=== PATIENT | male | born 1955 | race Caucasian/White ===

== ENCOUNTER 2021-01-21 09:16 | Emergency (ER) | payer MEDICARE, SELFPAY ==
[2021-01-21 09:17] VITALS: BP 191/96; PULSE 65; RESP 20; TEMP 36.7; O2SAT 97; BMI 25.8
--- NOTE | 2021-01-21 09:27 | DI.RAD.S_ITS ---
PROCEDURE: XR SACRUM COCCYX MIN 2V INDICATIONS: pain TECHNIQUE: 3 views of the sacrum and coccyx acquired. COMPARISON: None. FINDINGS: Bones: No fractures or dislocations. No suspicious bony lesions. Soft tissues: Visualized bowel gas pattern is normal. No suspicious soft tissue densities. IMPRESSION: Normal for age, source of current pain symptoms is not seen. Dictated by: Jordin Horn M.D. on 01/21/2021 at 9:46 Approved by: Jordin Horn M.D. on 01/21/2021 at 9:46
--- NOTE | 2021-01-21 09:29 | ED.BACK ---
HPI - Back Pain/Injury General Chief Complaint: Back Pain/Injury Stated Complaint: tail bone acts like its broken or something Time Seen by Provider: 01/21/21 09:18 History of Present Illness HPI Narrative: patient is a 65-year-old male who presents with 1 weeks worth of tailbone pain. he said he was on a sailboat for 3 days sitting he does not remember any type of injury or fall. As soon as he got home he started having pain. It hurts whenever he sits. He denies numbness tingling change in bowel or bladder habits. No fever chills. Does not notice any swelling. He has been taking Advil for pain which helps some he last took it yesterday. Related Data Previous Rx's Medication Instructions Recorded hydrocodone 5 mg-acetaminophen 325 1 tab PO Q6H PRN #10 tab 01/21/21 mg tablet Allergies Allergy/AdvReac Type Severity Reaction Status Date / Time No Known Drug Allergies Allergy Verified 01/21/21 09:31 Review of Systems Review of Systems Narrative: GENERAL: Denies chills, fatigue, malaise, fever, sweats, travel HEENT: Denies sinus pain, ear pain, sore throat, difficulty swallowing, neck pain RESPIRATORY: Denies dyspnea, cough, wheezing, hemoptysis, sputum. CARDIOVASCULAR: Denies chest pain, palpitations, orthopnea, edema GASTROINTESTINAL: Denies nausea, vomiting, abdominal pain, diarrhea, constipation, melena. : Denies dysuria, frequency, incontinence, hematuria, urinary retention, flank pain. MUSCULOSKELETAL: See HPI SKIN: No rash, no erythema, no pruritus NEUROLOGIC: Denies weakness, dizziness, headache, numbness, change in speech, confusion PSYCHIATRIC: No concerning psychosocial issues. 12 point review of systems is negative except for those stated above and HPI Patient History Social History Smoking Status: Current every day smoker Exam Initial Vital Signs Initial Vital Signs: Vital Signs Temperature 98.1 F 01/21/21 09:17 Pulse Rate 65 01/21/21 09:17 Respiratory Rate 20 01/21/21 09:17 Blood Pressure 191/96 H 01/21/21 09:17 Pulse Oximetry 97 01/21/21 09:17 GENERAL: alert well-appearing 65-year-old male HEENT: Head atraumatic,EOMI, pupils reactive, face symmetric, [moist] mucous membranes CARDIOVASCULAR: Regular rate and rhythm without murmurs, rubs or gallops. RESPIRATORY: Breath sounds equal bilaterally, no wheezes rales or rhonchi. BACK: Tender at the very tip of his coccyx. Buttock is examined there is no erythema sign of abscess swelling. pain is reproducible with palpation EXTREMITIES: Normal range of motion, no clubbing or edema. Neurovascularly intact NEUROLOGICAL: Alert and oriented x4.Normal gait and speech. sensation in lower extremities intact including sensation in medial thighs SKIN: Warm, dry, no laceration, no petechiae, no rashes or lesions. No abscesses no fluctuation no induration. Not in the area of the pilonidal cyst Course Orders Ordered: Discontinued Medications Ketorolac Tromethamine (Ketorolac 30 Mg/Ml Vial) 30 mg IM NOW ONE Stop: 01/21/21 09:28 Last Admin: 01/21/21 09:44 Dose: 30 mg Documented by: [facility] - Back Pain/Injury Imaging Data Extremity x-ray #1: Radiologist's Impression: PROCEDURE: XR SACRUM COCCYX MIN 2V INDICATIONS: pain TECHNIQUE: 3 views of the sacrum and coccyx acquired. COMPARISON: None. FINDINGS: Bones: No fractures or dislocations. No suspicious bony lesions. Soft tissues: Visualized bowel gas pattern is normal. No suspicious soft tissue densities. IMPRESSION: Normal for age, source of current pain symptoms is not seen. Dictated by: Jordin Horn M.D. on 01/21/2021 at 9:46 Approved by: Jordin Horn M.D. on 01/21/2021 at 9:46 [facility] Narrative Medical decision making narrative: Patient has no real injury to his coccyx or sacrum. Although he was hitting it on a sailboat for number of days and then started having pain. Has no neurologic deficits. There is no abscess fluctuation or erythema in his buttocks. Rectal exam was not done but have low suspicion for a rectal abscess. He has no fever or chills. Discharge Plan Departure Patient Disposition: Home Clinical Impression: Contusion of sacrum Instructions: DI for Coccyx Fracture Activity Restrictions/Additional Instructions: *You have been diagnosed with sacral and coccyx contusion *What to do: at this time her x-ray does not show any fracture. however very small fractures do not often show up on x-ray. you did not have any fall or injury so I do not suspect a fracture. I do think this is more of a bruise. I recommend sitting on pillows, icing 20-30 minutes at a time *Continue to take medications as directed ibuprofen 600 mg every 6 hours if needed for [id number] pain with food hydrocodone 1-2 tablets every 6 hours if needed for severe pain *Follow up with your primary care provider in 2-3 days *Return to ER if you should have increasing pain, changes in bowel or bladder habits, numbness tingling or weakness [or] any new, worsening or concerning symptoms CONTROLLED SUBSTANCE DISCHARGE (Narcotoic/benzodiazepine/Flexeril/Phenergan) 1. You have been prescribed narcotic medications, it does have acetaminophen/Tylenol/paracetamol in it, DO NOT TAKE MORE THAN 4,00mg in 24 hours of Tylenol. TRAMADOL DOES NOT CONTAIN TYLENOL 2. Please understand that we cannot provide further refills of narcotics, benzodiazepines or controlled substances through the ED and her pain management will need to be through your provider. 3. While on these medications you cannot drive or operate heavy machinery. 4. You cannot sign legal documents or perform any duties such as this. 5. As long as you're taking opiate pain medications he should also be taking a stool softener such as Colace, Dulcolax, MiraLAX or prune juice, to help avoid constipation. Prescriptions: New hydrocodone-acetaminophen 5-325 mg tablet 1 tab PO Q6H PRN (Reason: pain) Qty: 10 RF: 0 Referrals: [facility] [Outside]
--- NOTE | 2021-01-21 09:34 | PC.NURSE ---
pt states he was out sailing and did sit on fiberglass a lot on the sailboat. otherwise pt doesn't recall any injury.
[2021-01-21] MEDS: KETOROLAC 30 MG/ML VIAL IM (09:44)
[2021-01-21 10:31] VITALS: BP 160/86; PULSE 56; O2SAT 95
== END 2021-01-21 10:37 | disposition home or self-care (01) ==
PROVIDERS: Emergency Provider Emergency Medicine
DX: S30.0XXA Contusion of lower back and pelvis, initial encounter (principal)
CPT/HCPCS: 72220; 96372; 99283; J1885

== ENCOUNTER 2023-12-19 08:21 | Emergency (ER) | payer MEDICARE, SELFPAY ==
[2023-12-19] VITALS (8 sets, daily range): BP systolic 180–209; BP diastolic 79–106; PULSE 50–96; RESP 17–21; TEMP 36.9; O2SAT 95–100; BMI 28.8
--- NOTE | 2023-12-19 08:31 | DI.CT.S_ITS ---
PROCEDURE: CT HEAD/BRAIN WO CON INDICATIONS: fall off ladder TECHNIQUE: Noncontrast 4.5 mm thick angled axial sections acquired from the foramen magnum to the vertex, with coronal and sagittal reformats. For radiation dose reduction, the following was used: automated exposure control, adjustment of mA and/or kV according to patient size. COMPARISON: None. FINDINGS: Image quality: Diagnostic. CSF spaces: Basal cisterns are patent. No extra-axial fluid collections. Ventricles are normal in size and shape. Brain: No midline shift. No intracranial masses or hemorrhage. Gifford-white matter interface is normal. Skull and face: Calvarium and visualized facial bones are intact, without suspicious lesions. Anterior scalp contusion without underlying fracture. Sinuses: Visualized sinuses and mastoids are clear. IMPRESSION: No acute intracranial pathology. Anterior right scalp contusion without underlying fracture. Dictated by: Alvarez Spann M.D. on 12/19/2023 at 9:22 Approved by: Alvarez Spann M.D. on 12/19/2023 at 9:24
--- NOTE | 2023-12-19 08:31 | DI.RAD.S_ITS ---
PROCEDURE: XR SHOULDER RT MIN 2V INDICATIONS: posterior pain scapula TECHNIQUE: 3 views of the shoulder were acquired. COMPARISON: None. FINDINGS: Bones: No fractures or dislocations. No suspicious bony lesions. Visualized ribs appear intact. Soft tissues: No suspicious soft tissue calcifications. IMPRESSION: No acute bony abnormality. Dictated by: Alvarez Spann M.D. on 12/19/2023 at 9:25 Approved by: Alvarez Spann M.D. on 12/19/2023 at 9:25
--- NOTE | 2023-12-19 08:31 | DI.CT.S_ITS ---
PROCEDURE: CT CERVICAL SPINE WO CON INDICATIONS: fall off ladder TECHNIQUE: Noncontrast 3 mm thick sections acquired from the skull base to the T4 level. Sagittal and coronal reformats were then constructed. For radiation dose reduction, the following was used: automated exposure control, adjustment of mA and/or kV according to patient size. COMPARISON: None. FINDINGS: Image quality: Excellent. Bones: No fractures or dislocations. Visualized superior ribs are intact. Mild to moderate, multilevel degenerative disc disease and diffuse facet arthrosis. Soft tissues: Prevertebral soft tissues are normal in thickness. No paravertebral hematomas. No apical pneumothoraces. IMPRESSION: No displaced fracture or traumatic subluxation. Dictated by: Alvarez Spann M.D. on 12/19/2023 at 9:18 Approved by: Alvarez Spann M.D. on 12/19/2023 at 9:21
--- NOTE | 2023-12-19 08:31 | DI.RAD.S_ITS ---
PROCEDURE: XR CHEST 2V INDICATIONS: fall TECHNIQUE: 2 views of the chest were acquired. COMPARISON: None. FINDINGS: Surgical changes and devices: Left shoulder arthroplasty. Lungs and pleura: Lungs are clear. No pleural effusions or pneumothorax. Mediastinum: Mediastinal contours are normal. Heart size is normal. Bones and chest wall: No suspicious bony abnormalities. Soft tissues appear unremarkable. IMPRESSION: No acute cardiopulmonary abnormality is seen. No displaced fracture or pneumothorax. Dictated by: Alvarez Spann M.D. on 12/19/2023 at 9:24 Approved by: Alvarez Spann M.D. on 12/19/2023 at 9:25
[2023-12-19 08:41] LABS: Add Manual Diff / Slide Review NO; Basophils Absolute Auto 100 /uL (0-100); Basophils Percent Auto 0.9 % (0-2); Eosinophils Absolute Auto 300 /uL (0-450); Eosinophils Percent Auto 3.5 % (2-4); Hematocrit 47.4 % (41-53); Hemoglobin 16.3 g/dL (13.5-17.5); Lymphocytes Absolute Auto 4000 /uL (1100-4500); Lymphocytes Percent Auto 45.9 % (25-40); Mean Corpuscular HGB Conc 34.3 % (30-36); Mean Corpuscular Hemoglobin 33.7 PG (26-34); Mean Corpuscular Volume 98.1 fL (80-100); Monocytes Absolute Auto 500 /uL (0-900); Monocytes Percent Auto 5.6 % (3-14); Neutrophils Absolute Auto 3900 /uL (1500-7000); Neutrophils Percent Auto 44.1 % (50-75); Platelet Count 180 X10^3/uL (150-400); Red Blood Cell Count 4.83 X10^6/uL (4.5-5.9); Red Cell Distribution Width 13.4 % (11.6-14.8); White Blood Cell Count 8.8 X10^3/uL (4.5-11.0)
[2023-12-19] MEDS: HYDROMORPHONE 0.5 MG INJ IV (08:43)
[2023-12-19 08:50] LABS: Alanine Aminotransferase 22 IU/L (<50); Albumin 4.9 g/dL (3.5-5.0); Albumin Globulin Ratio 1.3 (1.0-2.8); Alkaline Phosphatase 54 U/L (38-126); Aspartate Aminotransferase 34 IU/L (17-59); BUN Creatinine Ratio 13.7 (6-22); Bilirubin Total 1.2 mg/dL (0.2-1.3); Blood Urea Nitrogen 13 mg/dL (9-20); Calcium 9.3 mg/dL (8.4-10.2); Carbon Dioxide 23 mmol/L (22-32); Chloride 106 mmol/L (98-107); Estimated Glomerular Filt Rate > 60 mL/min (>60); Globulin 3.8 g/dL (1.7-4.1); Glucose 119 mg/dL (80-110); Potassium 4.9 mmol/L (3.4-5.1); Sodium 139 mmol/L (137-145); Total Protein 8.7 g/dL (6.3-8.2)
[2023-12-19 08:52] LABS: HEMOLYSIS 101 (0-50)
--- NOTE | 2023-12-19 08:54 | ED_ITS ---
HPI - Fall General Chief Complaint: Trauma Stated Complaint: Fall, head injury Time Seen by Provider: 12/19/23 08:31 Source: patient Mode of arrival: Family Vehicle History of Present Illness HPI Narrative: Patient is a 60-year-old male without significant past medical history presenting today with fall off a ladder about 4-5 feet. He reports that they were trying to put something up on a shelf when he fell. He is really complaining of some right shoulder and scapular pain. He did hit his head on the forehead he did not pass out or lose consciousness. No nausea or vomiting. He has not on antiplatelet or anticoagulation medication. He does have some numbness tingling in his right hand. Denies any rib pain or hip pain he was able to ambulate into the ED and did not require EMS transport Related Data Previous Rx's Medication Instructions Recorded hydrocodone 5 mg-acetaminophen 325 1 tab PO Q6H PRN pain #10 tabs 01/21/ mg tablet hydrocodone 5 mg-acetaminophen 325 1 tab PO Q6H PRN pain #10 tabs 12/19/23 mg tablet Allergies Allergy/AdvReac Type Severity Reaction Status Date / Time Penicillins Allergy Verified 12/19/23 08:59 Patient History Social History Smoking Status: Current every day smoker Smoking Status: Current every day smoker tobacco type: cigarettes alcohol intake frequency: 0-2 drinks per day Substance Use Type: does not use Exam Initial Vital Signs Initial Vital Signs: Vital Signs Pulse Rate 87 12/19/23 08:30 Pulse Oximetry 99 12/19/23 08:30 GENERAL: Alert 60-year-old male and in no acute distress. HEENT: Head laceration at the right he hairline on the forehead 8cm and a second laceration right below it 2cm hematoma noted NECK: Supple no vertebral tenderness or step-off CARDIOVASCULAR: Regular rate and rhythm without murmurs, rubs or gallops. RESPIRATORY: Breath sounds equal bilaterally, no wheezes rales or rhonchi. No rib pain ABDOMEN: Soft, nontender. Normoactive bowel sounds all 4 quadrants. No guarding or rebound. EXTREMITIES: Normal range of motion, no clubbing or edema. Neurovascularly intact Right shoulder tender to touch and scapula decreased range of most and distal radial pulse intact, Radian median and ulnar nerve intact able to flex and extend wrist. 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 NEUROLOGICAL: Alert and oriented x4.Normal gait and speech. Cranial nerves II through XII grossly intact. SKIN: Warm, dry, no laceration, no petechiae, no rashes or lesions. Procedures Laceration Repair Laceration 1: Site: scalp Side (If applicable): right Size (cm): 7 Description: linear Depth: simple, single layer Local Anesthetic: lidocaine 1% and with epi Amount of anesthesia used (mL): 10 Pre-repair: wound explored, irrigated extensively and deep structures intact Skin layer closed with: mahesh (8) Skin layer suture size: 4-0 Number of sutures: 3 Technique: simple, interrupted Laceration 2: Site: scalp Side (If applicable): right Size (cm): 2 Description: linear Depth: simple, single layer Local Anesthetic: lidocaine 1% and with epi Pre-repair: wound explored, irrigated extensively and deep structures intact Skin layer closed with: mahesh (2) Course Orders Ordered: ED Orders 12/19/23 08:31 CT cervical spine wo con Stat CT head/brain wo con Stat Chest [XR chest 2V] Stat XR shoulder RT min 2V Stat 12/19/23 08:34 CBC Auto Diff [Complete Blood Count AUTO DIFF] Stat CMP [Comprehensive Metabolic Panel] Stat 12/19/23 09:18 XR hand RT min 3V Stat Discontinued Medications Diphtheria/Tetanus/Acell Pertussis (Tet,Diph,Pertuss(Acell),Vac/Pf 0.5 Ml Syringe) 0.5 ml IM .ONCE ONE Stop: 12/19/23 09:31 Last Admin: 12/19/23 09:34 Dose: 0.5 ml Documented By: RLS Hydromorphone HCl (Hydromorphone 0.5 Mg Inj) 0.5 mg IV NOW ONE Stop: 12/19/23 08:32 Last Admin: 12/19/23 08:43 Dose: 0.5 mg Documented By: Lidocaine/Epinephrine (Lidocaine 1% W/Epi) 1 ml SUBCUT NOW ONE Stop: 12/19/23 08:32 Last Admin: 12/19/23 09:31 Dose: 1 ml Documented By: Vital Signs Vital signs: Vital Signs - 8 hr 12/19/23 08:30 12/19/23 08:31 12/19/23 08:31 Temperature Pulse Rate 87 96 H Respiratory Rate 20 Blood Pressure 207/106 H Pulse Oximetry 99 97 Oxygen Delivery Method 12/19/23 08:33 12/19/23 08:33 12/19/23 08:34 Temperature 98.5 F Pulse Rate 58 L 63 Respiratory Rate 20 18 Blood Pressure 209/101 H 207/106 H Pulse Oximetry 98 100 Oxygen Delivery Method Room Air Room Air 12/19/23 09:10 12/19/23 09:16 12/19/23 09:16 Temperature Pulse Rate 50 L Respiratory Rate 20 21 Blood Pressure 180/95 H Pulse Oximetry 99 95 Oxygen Delivery Method 12/19/23 09:30 12/19/23 09:30 12/19/23 10:20 Temperature Pulse Rate 51 L 51 L Respiratory Rate 20 17 Blood Pressure 186/98 H 201/79 H Pulse Oximetry 95 98 Oxygen Delivery Method Room Air Room Air MDM - Fall Lab Data 12/19/23 08:34 12/19/23 08:34 Labs: Lab Results 12/19/23 Range/Units 08:34 WBC 8.8 (4.5-11.0) X10^3/uL RBC 4.83 (4.5-5.9) X10^6/uL Hgb 16.3 (13.5-17.5) g/dL Hct 47.4 (41-53) % MCV 98.1 (80-100) fL MCH 33.7 (26-34) PG MCHC 34.3 (30-36) % RDW 13.4 (11.6-14.8) % Plt Count 180 (150-400) X10^3/uL Neut % (Auto) 44.1 L (50-75) % Lymph % (Auto) 45.9 H (25-40) % [place] % (Auto) 5.6 (3-14) % Eos % (Auto) 3.5 (2-4) % Baso % (Auto) 0.9 (0-2) % Neut # (Auto) 3900 (7327-1547) /uL Lymph # (Auto) 4000 (9665-4201) /uL [place] # (Auto) 500 (0-900) /uL Eos # (Auto) 300 (0-450) /uL Baso # (Auto) 100 (0-100) /uL Sodium 139 (137-145) mmol/L Potassium 4.9 (3.4-5.1) mmol/L Chloride 106 (98-107) mmol/L Carbon Dioxide 23 (22-32) mmol/L BUN 13 (9-20) mg/dL Creatinine 0.95 (0.66-1.25) mg/dL Estimated GFR > 60 (>60) mL/min BUN/Creatinine Ratio 13.7 (6-22) Glucose 119 H (80-110) mg/dL Calcium 9.3 (8.4-10.2) mg/dL Total Bilirubin 1.2 (0.2-1.3) mg/dL AST 34 (17-59) IU/L ALT 22 (<50) IU/L Alkaline Phosphatase 54 (38-126) U/L Total Protein 8.7 H (6.3-8.2) g/dL Albumin 4.9 (3.5-5.0) g/dL Globulin 3.8 (1.7-4.1) g/dL Albumin/Globulin Ratio 1.3 (1.0-2.8) Imaging Data CT - cervical spine: Radiologist's Impression: PROCEDURE: CT CERVICAL SPINE WO CON INDICATIONS: fall off ladder TECHNIQUE: Noncontrast 3 mm thick sections acquired from the skull base to the T4 level. Sagittal and coronal reformats were then constructed. For radiation dose reduction, the following was used: automated exposure control, adjustment of mA and/or kV according to patient size. COMPARISON: None. FINDINGS: Image quality: Excellent. Bones: No fractures or dislocations. Visualized superior ribs are intact. Mild to moderate, multilevel degenerative disc disease and diffuse facet arthrosis. Soft tissues: Prevertebral soft tissues are normal in thickness. No paravertebral hematomas. No apical pneumothoraces. IMPRESSION: No displaced fracture or traumatic subluxation. Dictated by: Alvarez Spann M.D. on 12/19/2023 at 9:18 Chest x-ray: Radiologist's Impression: PROCEDURE: XR CHEST 2V INDICATIONS: fall TECHNIQUE: 2 views of the chest were acquired. COMPARISON: None. FINDINGS: Surgical changes and devices: Left shoulder arthroplasty. Lungs and pleura: Lungs are clear. No pleural effusions or pneumothorax. Mediastinum: Mediastinal contours are normal. Heart size is normal. Bones and chest wall: No suspicious bony abnormalities. Soft tissues appear unremarkable. IMPRESSION: No acute cardiopulmonary abnormality is seen. No displaced fracture or pneumothorax. Dictated by: Alvarez Spann M.D. on 12/19/2023 at 9:24 Approved by: Alvarez Spann M.D. on 12/19/2023 at 9:25 CT scan - head: Radiologist's Impression: PROCEDURE: CT HEAD/BRAIN WO CON INDICATIONS: fall off ladder TECHNIQUE: Noncontrast 4.5 mm thick angled axial sections acquired from the foramen magnum to the vertex, with coronal and sagittal reformats. For radiation dose reduction, the following was used: automated exposure control, adjustment of mA and/or kV according to patient size. COMPARISON: None. FINDINGS: Image quality: Diagnostic. CSF spaces: Basal cisterns are patent. No extra-axial fluid collections. Ventricles are normal in size and shape. Brain: No midline shift. No intracranial masses or hemorrhage. Gifford-white matter interface is normal. Skull and face: Calvarium and visualized facial bones are intact, without suspicious lesions. Anterior scalp contusion without underlying fracture. Sinuses: Visualized sinuses and mastoids are clear. IMPRESSION: No acute intracranial pathology. Anterior right scalp contusion without underlying fracture. Extremity x-ray #1: Radiologist's Impression: PROCEDURE: XR SHOULDER RT MIN 2V INDICATIONS: posterior pain scapula TECHNIQUE: 3 views of the shoulder were acquired. COMPARISON: None. FINDINGS: Bones: No fractures or dislocations. No suspicious bony lesions. Visualized ribs appear intact. Soft tissues: No suspicious soft tissue calcifications. IMPRESSION: No acute bony abnormality. Dictated by: Alvarez Spann M.D. on 12/19/2023 at 9:25 Extremity x-ray #2: Radiologist's Impression: PROCEDURE: XR HAND RT MIN 3V INDICATIONS: fall TECHNIQUE: 3 views of the hand(s) acquired. COMPARISON: None. FINDINGS: Bones: No fractures or dislocations. Carpal bones are normally aligned. No suspicious bony lesions. 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 Soft tissues: No suspicious soft tissue calcifications. IMPRESSION: No acute bony abnormality. Dictated by: Alvarez Spann M.D. on 12/19/2023 at 9:36 MDM Narrative Medical decision making narrative: Patient 60-year-old male without significant past medical history presenting today with fall off ladder about 4-5 feet hitting his head. He is obvious laceration to the right forehead. Fortunately not on antiplatelet or anticoagulation medications. Really complaining of some right shoulder pain. Blood work has been reviewed no anemia or SWAPNIL electrolyte abnormalities Imaging including head CT cervical spine chest x-ray right shoulder and right hand do not show any acute fracture abnormality intracranial hemorrhage Laceration easily repaired with mahesh and sutures Patient lives in [place] does not have a PCP here but will go to the walk-in clinic he does not anticipate going back to [place] until February His tetanus is up-to-date. He initially was given Dilaudid here for pretty severe shoulder pain. Discharge Plan Departure Patient Disposition: Home Clinical Impression: Laceration Instructions: DI for Laceration Repair -- Mahesh, DI for Shoulder Pain Activity Restrictions/Additional Instructions: *You have been diagnosed with head laceration, right shoulder contusion and pain *What to do: Have mahesh and sutures removed in about 7-10 days. [facility] or a primary care provider if needed you may return to the ED for removal. Maybe normally keep area clean and dry. Apply ice 20-30 minutes at a time. Increase movement of shoulder as tolerated. No broken bones are noted today. *Continue to take medications as directed Motrin 600 mg every 6 hours for czvp-rr-penmezvv pain [place] 1 tablet every 6 hours only if needed for severe pain *Follow up with your primary care provider in 2-3 days or call [phone] *Return to ER if you should have increasing pain numbness tingling weakness persistent vomiting or any new, worsening or concerning symptoms CONTROLLED SUBSTANCE DISCHARGE (Narcotoic/benzodiazepine/Flexeril/Phenergan) 1. You have been prescribed narcotic medications, it does have acetaminophen/Tylenol/paracetamol in it, DO NOT TAKE MORE THAN 4,00mg in 24 hours of Tylenol. TRAMADOL DOES NOT CONTAIN TYLENOL 2. Please understand that we cannot provide further refills of narcotics, benzodiazepines or controlled substances through the ED and her pain management will need to be through your provider. 3. While on these medications you cannot drive or operate heavy machinery. 4. You cannot sign legal documents or perform any duties such as this. 5. As long as you're taking opiate pain medications he should also be taking a stool softener such as Colace, Dulcolax, MiraLAX or prune juice, to help avoid constipation. Prescriptions: New hydrocodone-acetaminophen 5-325 mg tablet 1 tab PO Q6H PRN (Reason: pain) Qty: 10 0RF No Action hydrocodone-acetaminophen 5-325 mg tablet 1 tab PO Q6H PRN (Reason: pain) Qty: 10 0RF Stand Alone Forms: Patient Portal/API
--- NOTE | 2023-12-19 09:18 | DI.RAD.S_ITS ---
PROCEDURE: XR HAND RT MIN 3V INDICATIONS: fall TECHNIQUE: 3 views of the hand(s) acquired. COMPARISON: None. FINDINGS: Bones: No fractures or dislocations. Carpal bones are normally aligned. No suspicious bony lesions. 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 Soft tissues: No suspicious soft tissue calcifications. IMPRESSION: No acute bony abnormality. Dictated by: Alvarez Spann M.D. on 12/19/2023 at 9:36 Approved by: Alvarez Spann M.D. on 12/19/2023 at 9:36
[2023-12-19] MEDS: LIDOCAINE 1% W/EPI 1 ML SUBCUT (09:31)
[2023-12-19] MEDS: TET,DIPH,PERTUSS(ACELL),VAC/PF 0.5 ML SYRINGE IM (09:34)
== END 2023-12-19 10:27 | disposition home or self-care (01) ==
PROVIDERS: Emergency Provider Emergency Medicine
DX: S01.81XA Laceration without foreign body of other part of head, initial encounter (principal); M25.511 Pain in right shoulder; W11.XXXA Fall on and from ladder, initial encounter; Z23 Encounter for immunization
CPT/HCPCS: 12015; 36415; 70450; 71046; 72125; 73030; 73130; 80053; 85025; 90471; 96374; 99284; 90715; J1170